=== PATIENT | female | born 1985 | race Native Hawaiian/Other Pacific Islander ===

== ENCOUNTER 2018-04-11 03:04 | Emergency (ER) | payer OTHER ==
--- NOTE | 2018-04-11 05:03 | OBHP ---
Datetime: 04/11/2018 04:29 IP Adm Impression: , intrauterine ; Ruptured Membranes IP Admit Plan: Admit to unit; Initiate labor induction protocol Admit Comment, IP Provider: 32yo with IUP at 35.3wks( EDC - 05/13/2018 ) reports here today wit h a feeling of a sudden gush of fluid around 2:30am. She reported good movement ans saw a tinge of blood. She currently denies pelvic pain or contractions. Pt recieves prenacare from a doctor at [place], [place], Dr Jossy Spicer. She called the answering service and was asked to come to [facility]. Pt reports an uncomplicated course to date. OBHx: PMHx: None of significance PSHx: None SHx: Denies alcohol or drug use. and works with [employer] in [place]. O: Appears well. Heart: RRR Chest: CTA B/L Abd: Soft, NT, BS - present TOCO: Occasional ctx FHR: 140s, regular with moderate variabilities Sterile Speculum Exam: Gross Pooling, Nitrazine Positive Cx: 2/50/-3 Limited bedside sonogram: Vertex presentation, Adequate fluid, MVP on the left upper quadrant of u terus , MVP>4cm. Assessment: IUP at 35.3weeks with SROM. NST: Reactive No Active Labor. GBS Status Unknown Plan: Admit to Labor and delivery GBS vaginal cultures obtained Monitor for the onset and progress of labor. On discussion of the plan of management with the Patient, she decides she wants to have her doctor deliver her baby and therefore wants to be discharged so she can go to [facility]. It was exp lained to the patient that with the membrane rupture the risks of leaving this hospital would include the prolapsing of the umbilical cord, leading to its entrapment and asphyxia in the baby,ultimately leading to . The amniotic fluid can be drained to such a level that it can also compress o n the baby and cause asphyxia and . The amniotic fluid may also get infected and may lead to maternal or sepsis. Despite the extensive discussion on the risks of leaving this hospital a nd refusing the treatment here at [facility], Pt insisted on leaving to recieve treat at [place] and [place] d a consent against Medical advice. Pelvic Type - PN: Adequate Extremities - PN: Normal Abdomen - PN: Normal Back - PN: Normal Breast - PN: Normal Lungs - PN: Normal Heart - PN: Normal Thyroid - PN: Normal Neurologic - PN: Normal HEENT - PN: Normal General - PN: Normal Presentation-Admit: Vertex FHR - Baseline A Provider: 140 Amniotic Fluid Color, Provider: Clear Membranes, Provider: Ruptured Contraction Comments Provider: Irritable Comments, ACOG Physical Exam: Abd: soft, NT, BS-present Speculum exam: gross pooling,Nitrazine positive Gestation - Est Wks by US: 35.3 Pool Provider: Positive Nitrazine Provider: Positive EGA AdmitDate IP: 35.3 IP Chief Complaint: Suspected ruptured membranes NICHD Variability Prov Fetus A: Moderate 6-25bpm NICHD Accel Fetus A IP Provider: [id number] FHR Category Provider Fetus A: Category I NICHD Decel Fetus A IP Provider: None Dilatation, Provider: 2-3 Effacement, Provider: 50 Station, Provider: -3 Genitourinary Exam: Normal DTRs - PN: Normal
[2018-04-12 03:12] VITALS: BP 124/81; PULSE 83; TEMP 99; O2SAT 98
== END 2018-04-11 04:33 | disposition left against medical advice (07) ==
LOC: H.EROB2 03:04
DX: O34.63 Maternal care for abnormality of vagina, third trimester (principal); N89.8 Other specified noninflammatory disorders of vagina; Z3A.35 35 weeks gestation of pregnancy